=== PATIENT | male | born 1955 | race Caucasian/White ===

== ENCOUNTER 2023-09-12 14:12 | Outpatient (AMB) | payer MEDICARE, MEDICAID, SELFPAY ==
--- NOTE | 2023-09-12 14:50 | A.OFFPC_ITS ---
Vital Signs 09/12/23 14:51 09/12/23 15:26 Height 5 ft 7 in Weight 178 lb BMI 27.9 BP 152/84 H 120/80 Blood Pressure Location Lt brachial Position Sitting Pulse 76 Pulse Source Pulse Oximeter Pulse Oximetry (%) 94 Oxygen Delivery Method Room Air Intake Visit Reasons: New patient-Cardiac issues Allergies No Known Allergies Allergy (Verified 09/12/23 14:51) Medication List - Last Reconciled 09/12/23 by ZOIE Hawkins atorvastatin 40 mg PO DAILY bisacodyl 10 mg PO BEDTIME dapagliflozin propanediol (Farxiga) 10 mg PO DAILY diphenhydramine HCl (Deedee-Dryl) 25 mg PO BEDTIME PRN furosemide 40 mg PO DAILY lisinopril 2.5 mg PO DAILY magnesium hydroxide (Milk of Magnesia) 5 mL PO DAILY PRN spironolactone 25 mg PO DAILY triamcinolone acetonide 0.1% 1 appl topical DAILY Tobacco use date assessed: 09/12/23 Fall risk assessment: No Falls in past year Last assessed Fall Risk: 09/12/23 Dental Screening Dental Screen Date: 09/12/23 Did you have a dental visit in the last 12 months?: No Did you have a dental problem in the last 6 months where you did not have access to dental care?: No Was dental information given to patient?: Patient declined HPI New patient-Cardiac issues HPI Details New pt is here to establish care. HTN: Blood pressure is managed with lisinopril 2.5mg and spironolactone 25mg. Pt would not like to increase any meds right now. Denies chest pain, shortness of breath, headache, dizziness, and blurred vision. Pt follows up with cardiology yearly, will track down notes. He has never had a colonoscopy, will refer to GI. Pt has smoked up to 1.5 packs a day since age 11. Will refer for low-dose CT. Due for PSA, will order. Denies dribbling with urination, weak stream, and frequent nocturia. Pt also follows up with pulmonology. Pt reports already getting his flu vaccine but has not had a pneumonia vaccine. [facility] Medical History (Updated 09/12/23 @ 15:14 by ZOIE Hawkins) HTN (hypertension) Social History Housing: House Patient Tobacco Use Status: Current everyday Tobacco user Cigarettes Per Day: 10 e-Cigarette/Vaping Use: Never Used service: No Current occupational status: disabled Cognitive needs: No Hearing needs: No Vision needs: Yes Questionnaire PHQ-9 Over the last 2 weeks, how often have you been bothered by any of the following problems? [id number] - PHQ-9 Billing: Patient declined-do not bill Source: Developed by Drs. Shubham Multani, Anabella Lee, Dominik Mcdonald and colleagues, with an educational chay from [employer]. Thrive Questionnaire Date Thrive assessed: 09/12/23 I am a: Patient What is your living situation today?: I have a steady place to live Within the past 12 months, did the food you bought not last and you didn't have the money to get more?: Never true Within the past 12 months, did you worry whether your food would run out before you got money to buy more?: Never true Do you have trouble paying for medicines?: No Do you have trouble getting transportation to medical appointments?: No Do you have trouble paying your heating and electricity bill?: No Do you have trouble taking care of your child, family member or friend?: No Do you have trouble with day-to-day activities such as bathing, preparing meals, shopping, managing finances, etc.?: No Are you currently unemployed and looking for a job?: No Are you interested in more education?: No AUDIT C Alcohol Use Questionnaire (AUDIT-C) 1. How often do you have a drink containing alcohol?: Never 3. How often do you have six or more drinks on one occasion?: Never Total Score: 0 Score Reviewed/Action Taken: No ADRIA-7 AMB Questionnaire ADRIA-7 Date ADRIA - 7 assessed: 09/12/23 Source: Developed by Drs. Shubham Multani, Anabella Lee, Dominik Mcdonald and colleagues, with an educational chay from [employer]. ADRIA-7 Assessment Billing ADRIA-7 Assessment Tool: pt declined-do not bill Review of Systems Const Reports as per HPI Physical exam (Primary Care) Vital Signs: Last Vital Signs Pulse 76 09/12/23 14:51 BP 120/80 09/12/23 15:26 Pulse Ox 94 09/12/23 14:51 Oxygen Delivery Method Room Air 09/12/23 14:51 BMI result Body Mass Index 27.9 Tobacco/Smoking Status: Tobacco use Status Tobacco use date assessed 09/12/23 09/12/23 15:01 Patient Tobacco Use Status Current everyday Tobacco 09/12/23 15:01 e-Cigarette/Vaping Use Never Used 09/12/23 15:01 Thrive Assessment: Date of Thrive Assessment Date Thrive assessed 09/12/23 09/12/23 15:29 Const General: cooperative Orientation/consciousness: patient oriented x3 Resp Effort & Inspection: normal respiratory effort Auscultation: diminished lung sounds Cardio Rate: regular rate Rhythm: regular rhythm Heart sounds: S1 normal heart sound present and S2 normal heart sound present Neuro General: patient oriented x3 Extrem Right lower extremity: no edema Left lower extremity: no edema Psych Appearance: grossly normal Mental Status: mental status grossly normal Speech and movement: Normal speech and movement present Affect: normal affect Attitude: cooperative Thought process: Normal thought process present Thought content: Normal thought content present Insight: Good insight present (Psych) Judgement: Good judgement present (Psych) Immunizations pneumoc 20-rick conj-dip cr(PF) 0.5 mL IM syringe Performing Provider: ZOIE Hawkins [place] [facility] [place] [facility] Administered by: MILADY Shepherd on 09/12/23 15:37 Dose Route Admin Location Dispensed Lot Number Expiration Date NDC Pharmacy Order Entry Technician 0.5 mL IM Right Deltoid 0.5 mL [id number] 06/05/24 3366-0711-86 [address] VIS Given Date VIS Provided VIS Publication Date 09/12/23 Single Vaccine 21 Eligibility Eligibility Date Funding Source Not [facility] Eligible 09/12/23 Private Assessment and Plan Assessment & Plan (1) HTN (hypertension): Code(s): I10 - Essential (primary) hypertension Plan: Labs ordered (2) Screening for prostate cancer: Code(s): Z12.5 - Encounter for screening for malignant neoplasm of prostate Plan: PSA ordered (3) Screening for colon cancer: Code(s): Z12.11 - Encounter for screening for malignant neoplasm of colon Plan: Referred to GI (4) Smoker: Code(s): F17.200 - Nicotine dependence, unspecified, uncomplicated Plan: Referred for low-dose CT Plan The patient agreed to the use of a coroner/medical examiner for this encounter. Scribed for Keven Amanda, [employer]- by Freda Cunningham, coroner/medical examiner, on 09/12/2023 at 15:10 EST. Orders: Orders Comprehensive [place]. Panel Fast Today I10 - Essential (primary) hypertension TSH reflex Free T4 Today I10 - Essential (primary) hypertension UA CC w/rflx Micro + Cult Today I10 - Essential (primary) hypertension Complete Blood Count Auto Diff Today I10 - Essential (primary) hypertension Lipid Panel Today I10 - Essential (primary) hypertension Prostate Specific Antigen Scr Today Z12.5 - Encounter for screening for malignant neoplasm of prostate Pneumococcal 20 Immunization Today Z23 - Encounter for immunization Referrals Gastroenterology Referral Z12.11 - Encounter for screening for malignant neoplasm of colon Thoracic Surgery Referral F17.200 - Nicotine dependence, unspecified, uncomplicated Coding Level of Care Code New Pt Level 3 (47016) Diagnoses HTN (hypertension) I10 Screening for prostate cancer Z12.5 Screening for colon cancer Z12.11 Smoker F17.200
[2023-09-12 14:51] VITALS: BP 152/84; PULSE 76; O2SAT 94; BMI 27.9
[2023-09-12 15:26] VITALS: BP 120/80
== END 2023-09-12 16:53 | disposition home or self-care (01) ==
LOC: HO.HMGC 14:12
PROVIDERS: PCP Nurse Practitioner Family; Visit Provider Nurse Practitioner Family
DX: I10 Essential (primary) hypertension (principal); Z12.5 Encounter for screening for malignant neoplasm of prostate; Z12.11 Encounter for screening for malignant neoplasm of colon; F17.200 Nicotine dependence, unspecified, uncomplicated; Z23 Encounter for immunization
CPT/HCPCS: 90471; 90677; 99203

== ENCOUNTER → 2023-10-31 10:25 | Outpatient (BNVA) | payer MEDICARE, MEDICAID, SELFPAY | PROVIDERS: PCP Nurse Practitioner Family; Visit Provider Nurse Practitioner ==